=== PATIENT | male | born 1930 | race Caucasian/White ===

== ENCOUNTER 2017-12-24 19:49 | Inpatient (IN) | payer OTHER ==
[~2017-12-24] VITALS: Ht 157.5 cm; Wt 55.0 kg
[~2017-12-24 19:49] MED LIST: ACETAMINOPHEN325 M1 PO; BENADRYL25 MG PO; LEVOFLOXACIN750 MG PO; LEVOTHYROXINE100 MCG PO; LUBRIDERM DAIL177 ML TP; METAMUCIL POWD822 G1 PO; MULTIPLE VITAM1 EACH PO; Q-TUSSIN DM SY240 ML PO
[2017-12-24 21:27] LABS: INTER. NORMALIZED RATIO 1.1
[2017-12-24 21:29] LABS: PTT 29.4 SEC (25-37)
[2017-12-24 21:34] LABS: HEMATOCRIT 38.7 % (38.0-50.0); HEMOGLOBIN 13.4 G/DL (12.5-16.6); MCH 31.1 PG (29.0-34.0); MCHC 34.6 G/DL (30.0-36.0); MCV 89.8 FL (86-99); PLATELET COUNT 203 K/uL (156-360); RBC DIS.WIDTH-CV 12.5 % (11.8-14.6); RBC DIS.WIDTH-SD 41.2 % (39-53); RED BLOOD COUNT 4.31 M/uL (4.00-5.50); WHITE BLOOD COUNT 8.3 K/uL (4.1-10.2)
[2017-12-24 21:39] LABS: ALBUMIN 3.9 g/dL (3.2-4.8); CHLORIDE 105 mEq/L (99-109); POTASSIUM 4.5 mEq/L (3.7-5.4); SODIUM 138 mEq/L (136-147)
[2017-12-24 21:42] LABS: GLUCOSE 90 mg/dL (70-99)
[2017-12-24 21:44] LABS: TOTAL BILIRUBIN 0.5 mg/dL (0.0-1.0)
[2017-12-24 21:45] LABS: ALKALINE PHOSPHATASE 84 IU/L (3-129); CREATININE 0.9 mg/dL (0.6-1.3); GFR ESTIMATE (CALCULATED) > 59 mL/min/ (58.99-99999)
[2017-12-24 21:46] LABS: UREA NITROGEN (BUN) 15 mg/dL (9-23)
[2017-12-24 21:47] LABS: AST (GOT) 21 IU/L (2-34)
[2017-12-24 21:48] LABS: ALT (GPT) 14 IU/L (3-49)
[2017-12-24] MEDS ORDERED: BACITRACIN28.4 GM TP (23:32)
[2017-12-25 01:43] VITALS: BP 139/63
[2017-12-25 03:22] VITALS: BP 126/60
[2017-12-25 07:42] VITALS: BP 167/77
[2017-12-25 09:45] LABS: HEMATOCRIT 37.1 % (38.0-50.0); HEMOGLOBIN 12.2 G/DL (12.5-16.6); MCV 91.4 FL (86-99)
[2017-12-25 10:59] VITALS: BP 120/56
[2017-12-25 15:40] LABS: HEMATOCRIT 36.1 % (38.0-50.0); MCV 90.9 FL (86-99)
[2017-12-25 15:51] VITALS: BP 129/60
[2017-12-25 20:07] VITALS: BP 165/78
[2017-12-26] VITALS (9 sets, daily range): BP systolic 103–177; BP diastolic 58–87
[2017-12-26 00:55] LABS: HEMATOCRIT 32.7 % (38.0-50.0); HEMOGLOBIN 11.2 G/DL (12.5-16.6); MCV 90.1 FL (86-99)
[2017-12-26 06:47] LABS: HEMATOCRIT 34.4 % (38.0-50.0); HEMOGLOBIN 11.5 G/DL (12.5-16.6); MCH 30.3 PG (29.0-34.0); MCHC 33.4 G/DL (30.0-36.0); MCV 90.8 FL (86-99); PLATELET COUNT 182 K/uL (156-360); RBC DIS.WIDTH-CV 12.9 % (11.8-14.6); RBC DIS.WIDTH-SD 42.9 % (39-53); RED BLOOD COUNT 3.79 M/uL (4.00-5.50); WHITE BLOOD COUNT 7.2 K/uL (4.1-10.2)
[2017-12-26 07:09] LABS: ALBUMIN 3.2 G/DL (3.2-4.8); ALKALINE PHOSPHATASE 64 IU/L (3-129); ALT (GPT) 11 IU/L (3-49); AST (GOT) 18 IU/L (2-34); CHLORIDE 108 MEQ/L (99-109); CREATININE 0.9 MG/DL (0.6-1.3); GFR ESTIMATE (CALCULATED) > 59 mL/min/ (58.99-99999); GLUCOSE 103 mg/dL (70-99); POTASSIUM 3.7 MEQ/L (3.7-5.4); SODIUM 142 MEQ/L (136-147); TOTAL BILIRUBIN 0.5 MG/DL (0.0-1.0); UREA NITROGEN (BUN) 8 mg/dL (9-23)
[2017-12-26 07:16] LABS: TOTAL PROTEIN 5.5 G/DL (6.4-8.3)
[2017-12-27 05:55] LABS: HEMATOCRIT 36.9 % (38.0-50.0); HEMOGLOBIN 12.2 G/DL (12.5-16.6); MCH 29.5 PG (29.0-34.0); MCHC 33.1 G/DL (30.0-36.0); MCV 89.3 FL (86-99); PLATELET COUNT 202 K/uL (156-360); RBC DIS.WIDTH-CV 12.8 % (11.8-14.6); RED BLOOD COUNT 4.13 M/uL (4.00-5.50); WHITE BLOOD COUNT 7.1 K/uL (4.1-10.2)
[2017-12-27 06:18] LABS: CHLORIDE 104 MEQ/L (99-109); CREATININE 0.8 MG/DL (0.6-1.3); GFR ESTIMATE (CALCULATED) > 59 mL/min/ (58.99-99999); GLUCOSE 86 mg/dL (70-99); POTASSIUM 3.6 MEQ/L (3.7-5.4); SODIUM 140 MEQ/L (136-147); UREA NITROGEN (BUN) 11 mg/dL (9-23)
[2017-12-27] MEDS ORDERED: FLAGYL500 MG PO (07:19)
[2017-12-27 08:30] VITALS: BP 134/70
== END 2017-12-27 12:42 | disposition home or self-care (01) | DRG 392 ==
LOC: EME → EDBD 19:49 → 2EAST 23:52 → EDOF 23:52 → ENRESERV 23:54 → 2EAST 12-25 01:28
PROVIDERS: Emergency Medicine; Family Medicine; Hospitalist; Student in an Organized Health Care Education/Training Program
DX: K52.9 Noninfective gastroenteritis and colitis, unspecified (principal); K92.1 Melena; G80.9 Cerebral palsy, unspecified; I10 Essential (primary) hypertension; E03.9 Hypothyroidism, unspecified; F79 Unspecified intellectual disabilities; Q38.2 Macroglossia; R25.1 Tremor, unspecified; R62.50 Unspecified lack of expected normal physiological development in childhood; Z87.01 Personal history of pneumonia (recurrent)
CPT/HCPCS: 74177; 80048; 80053; 85014; 85018; 85027; 85610; 85730; 87493; 87506; 99281; 99285; C9113; J1956; J7030; S0030